=== PATIENT | male | born 1990 | race Caucasian/White ===

== ENCOUNTER 2020-09-14 21:18 | Emergency (ER) | payer BC, MEDICAID ==
[~2020-09-14] VITALS: Ht 175.3 cm; Wt 72.6 kg
[2020-09-14 21:18] VITALS: BP_SYST 139
--- NOTE | 2020-09-14 21:18 | NUR ---
PT TO FAST TRACK 1 FOR EVALUATION
--- NOTE | 2020-09-14 21:19 | NUR ---
DR. RIDLEY AT BEDSIDE FOR EVALUATION
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
[2020-09-14] MEDS: DIPH-TET-PERTUS Vaccine 0.5 ML VIAL (ADACEL) I.M. ONE (21:48)
[2020-09-14] MEDS: MORPHINE 2 MG/ML INJ. SYRINGE IVP ONE (21:49)
[2020-09-14 21:55] VITALS: BP_SYST 138
--- NOTE | 2020-09-14 21:55 | NUR ---
Patient to be transferred to [facility]. Is being transferred due to higher level of care. Receiving facility has accepting physician and available space. ER physician has signed transfer form. Patient or responsible alliance party has agreed to transfer and signed form. Patient belongings inventoried and will be sent with patient. Copy of nursing notes, lab reports, EKG, Physicians Orders and X-rays to be sent with patient. Report called to ER CHARGE at receiving facility. Receiving physician is PAK. [facility] HERE for transfer.
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
== END 2020-09-14 21:55 | disposition short-term general hospital (02) ==
LOC: SED 21:18
DX: S21.112A Laceration without foreign body of left front wall of thorax without penetration into thoracic cavity, initial encounter (principal); S41.112A Laceration without foreign body of left upper arm, initial encounter; X99.8XXA Assault by other sharp object, initial encounter; Y93.89 Activity, other specified; Y92.89 Other specified places as the place of occurrence of the external cause; Y99.8 Other external cause status
CPT/HCPCS: 71045; 90471; 90715; 96374; 99285; J2270